=== PATIENT | male | born 1990 | race Caucasian/White ===

== ENCOUNTER 2016-11-28 21:07 | Emergency (ER) | payer MEDICAID ==
[2016-11-29] MEDS ORDERED: HYDROCODONE/ACETAMINOPHEN 5-325 MG TABLET PO ONE (03:28)
[2016-11-29] MEDS ORDERED: HYDROCODONE/ACETAMINOPHEN 5-325 MG 6 TAB/DSPK PO PRN (03:28)
--- NOTE | 2016-11-29 03:34 | ER Document Report ---
ED Hand/Wrist Injury - General Chief Complaint: Finger Injury Stated Complaint: FINGER PAIN Time Seen by Provider: 11/29/16 03:06 TRAVEL OUTSIDE OF THE [place] IN LAST 30 DAYS: No - HPI Injury to: Middle finger Onset: Last week Where: Other - dog bite Quality of pain: Achy Context: Human/animal bite Notes: tetanus UTD, no erythema, edema, drainage - Related Data Allergies/Adverse Reactions: No Known Allergies Allergy (Verified 10/18/15 17:07) Past Medical History - Social History Smoking Status: Current Every Day Smoker Family History: CAD, CVA, DM, Hyperlipidemia, Hypertension, Malignancy. denies : Thyroid Disfunction Patient has suicidal ideation: No Patient has homicidal ideation: No - Past Medical History Cardiac Medical History: Reports: Hx Hypertension Pulmonary Medical History: Reports: Hx Asthma, Hx Pneumonia Neurological Medical History: Reports: Hx Migraine Renal/ Medical History: Denies: Hx Peritoneal Dialysis Musculoskeltal Medical History: Denies Hx Arthritis, Reports Hx Musculoskeletal Deformity, Reports Hx Musculoskeletal Trauma Psychiatric Medical History: Reports: Hx Attention Deficit Hyperactivity Disorder - not taking medication, Hx Bipolar Disorder Traumatic Medical History: Reports: Hx Fractures Past Surgical History: Reports: Hx Orthopedic Surgery - RIGHT HAND, Hx Testicular Surgery - Immunizations Immunizations up to date: Yes Hx Diphtheria, Pertussis, Tetanus Vaccination: Yes Review of Systems - Review of Systems Constitutional: No symptoms reported Musculoskeletal: See HPI Physical Exam - Vital signs Vitals: Temp Pulse Resp BP Pulse Ox 98.6 F 94 18 156/91 H 97 11/28/16 21:24 11/28/16 21:24 11/28/16 21:24 11/28/16 21:24 11/28/16 21:24 - General General appearance: Appears well, Alert In distress: None - Cardiovascular Pulses: Normal: Radial Normal capillary refill: Yes - Extremities Forearm: Normal, Nontender Wrist: Normal, Nontender Hand: Nontender, Swelling - at PIP joint thrid digit right hand. No: Deformity , Dislocation, No evidence of FB, Tendon deficit - Skin Skin Temperature: Warm Skin Moisture: Dry Skin Color: Normal Skin Turgor: Elastic Skin irregularity: negative: Erythema, Tender indurated area Course - Re-evaluation Re-evalutation: 11/29/16 07:35 Patient is a 26-year-old male is hemodynamic stable, no distress afebrile. No evidence of concern for an acute infection of the joint. Evidence of proximal phalanx distal fracture on x-ray. Patient placed in splint and to follow-up with Ortho . - Vital Signs Vital signs: Temp Pulse Resp BP Pulse Ox 97.8 F 74 18 144/93 H 97 11/29/16 03:42 11/29/16 03:42 11/29/16 03:42 11/29/16 03:42 11/29/16 03:42 - Diagnostic Test Radiology reviewed: Image reviewed, Reports reviewed Discharge - Discharge Clinical Impression: Fracture of phalanx of hand Qualifiers: Encounter type: initial encounter Fracture type: closed Qualified Code(s): S62.609A - Fracture of unspecified phalanx of unspecified finger, initial encounter for closed fracture Condition: Good Disposition: HOME, SELF-CARE Instructions: Fractured Finger ([facility]) Additional Instructions: Please follow up with hand surgeon Referrals: EDUIN GONCALVES DO [ACTIVE STAFF] - Follow up in 3-5 days
[2016-11-29 03:43] VITALS: BP 144/93
--- NOTE | 2016-12-02 12:07 | RADIOLOGY REPORT (SQ) ---
EXAM DESCRIPTION: FINGER RIGHT COMPLETED DATE/TIME: 11/29/2016 12:35 am REASON FOR STUDY: right middle finger injury COMPARISON: 10/18/2015. 06/13/2010. NUMBER OF VIEWS: Four views. TECHNIQUE: AP, lateral, and oblique images acquired of the right hand. LIMITATIONS: None. FINDINGS: 4 radiographic views of the right hand show moderate soft tissue swelling at the right 3rd PIP joint. No evidence of radiopaque foreign body. Slight new enthesopathy at the right 3rd proxim al phalangeal head. Screw fixation of the right 4th metacarpal shaft chronic mild deformity of the r ight 5th metacarpus consistent with prior injury per IMPRESSION: Moderate swelling at the right 3rd PIP joint. No significant bone or joint defect. No radiopaque foreign body. TECHNICAL DOCUMENTATION: JOB ID: [id number] [employer]- All Rights Reserved
== END 2016-11-29 03:55 | disposition home or self-care (01) ==
LOC: ER 21:07
DX: S62.602A Fracture of unspecified phalanx of right middle finger, initial encounter for closed fracture (principal); W54.0XXA Bitten by dog, initial encounter; J45.909 Unspecified asthma, uncomplicated; I10 Essential (primary) hypertension; F17.200 Nicotine dependence, unspecified, uncomplicated
CPT/HCPCS: 99283

== ENCOUNTER 2016-12-13 20:12 | Inpatient (IN) | payer MEDICAID ==
--- NOTE | 2016-12-13 20:56 | ER Document Report ---
ED General - General Chief Complaint: Hand Swelling Stated Complaint: RIGHT HAND INJURY Time Seen by Provider: 12/13/16 20:43 TRAVEL OUTSIDE OF THE [place] IN LAST 30 DAYS: No - HPI Notes: Patient is a 26-year-old male who presents the ED per the request of Dr. Salas so that patient can get admitted for osteomyelitis of his right third proximal digit. Patient states that he has had swelling for the last month status post dog bite. Patient was told a week and half ago that he had a fracture and was evaluated by Dr. Salas recently who performed another x-ray and then an outpatient MRI which showed osteomyelitis without tenosynovitis. Patient states that his pain does not radiate. He is still eating and drinking without difficulties. He has been taking Vicodin for his pain. Patient states that he did take 1 dose of Augmentin this evening per orthopedic. Denies any drug allergies or significant past medical history otherwise. Denies any headache, fever, chest pain, palpitations, syncope, cough, shortness of breath, wheeze, dyspnea, abdominal pain, nausea/vomiting/diarrhea, urinary retention, dysuria, hematuria, or rash. - Related Data Allergies/Adverse Reactions: No Known Allergies Allergy (Verified 10/18/15 17:07) Past Medical History - Social History Smoking Status: Unknown if Ever Smoked Family History: CAD, CVA, DM, Hyperlipidemia, Hypertension, Malignancy. denies : Thyroid Disfunction Patient has suicidal ideation: No Patient has homicidal ideation: No - Past Medical History Cardiac Medical History: Reports: Hx Hypertension Pulmonary Medical History: Reports: Hx Asthma, Hx Pneumonia Neurological Medical History: Reports: Hx Migraine Renal/ Medical History: Denies: Hx Peritoneal Dialysis Musculoskeltal Medical History: Denies Hx Arthritis, Reports Hx Musculoskeletal Deformity, Reports Hx Musculoskeletal Trauma Psychiatric Medical History: Reports: Hx Attention Deficit Hyperactivity Disorder - not taking medication, Hx Bipolar Disorder Traumatic Medical History: Reports: Hx Fractures Past Surgical History: Reports: Hx Orthopedic Surgery - RIGHT HAND, Hx Testicular Surgery - Immunizations Immunizations up to date: Yes Hx Diphtheria, Pertussis, Tetanus Vaccination: Yes Review of Systems - Review of Systems Notes: REVIEW OF SYSTEMS: CONSTITUTIONAL : Denies fever, chills, or sweats. Denies recent illness. EENT: Denies eye, ear, throat, or mouth pain or symptoms. Denies nasal or sinus congestion or discharge. Denies throat, tongue, or mouth swelling or difficulty swallowing. CARDIOVASCULAR: Denies chest pain. Denies palpitations or racing or irregular heart beat. Denies ankle edema. RESPIRATORY: Denies cough, cold, or chest congestion. Denies shortness of breath, difficulty breathing, or wheezing. GASTROINTESTINAL: Denies abdominal pain or distention. Denies nausea, vomiting , or diarrhea. Denies blood in vomitus, stools, or per rectum. Denies black, tarry stools. Denies constipation. GENITOURINARY: Denies difficulty urinating, painful urination, burning, frequency, blood in urine, or discharge. MUSCULOSKELETAL: see hpi SKIN: Denies rash, lesions or sores. NEUROLOGICAL: Denies confusion or altered mental status. Denies passing out or loss of consciousness. Denies dizziness or lightheadedness. Denies headache. Denies weakness or paralysis or loss of use of either side. Denies problems with gait or speech. Denies sensory loss, numbness, or tingling. Denies seizures. PSYCHIATRIC: Denies anxiety or stress. Denies depression, suicidal ideation, or homicidal ideation. ALL OTHER SYSTEMS REVIEWED AND NEGATIVE. Dictation was performed using [employer] voice recognition software Physical Exam - Vital signs Vitals: Temp Pulse Resp BP Pulse Ox 98.8 F 83 18 140/91 H 96 12/13/16 20:22 12/13/16 20:22 12/13/16 20:22 12/13/16 20:22 12/13/16 20:22 Notes: PHYSICAL EXAMINATION: GENERAL: Well-appearing, well-nourished and in no acute distress. LUNGS: Breath sounds clear to auscultation bilaterally and equal. No wheezes rales or rhonchi. HEART: Regular rate and rhythm without murmurs, rubs, gallops. Musculoskeletal: Rt 3rd digit: LROM to passive/active. Strength 4+/5 due to pain. + erythema and swelling of the prox phalanx/PIP jt. + tenderness. No obvious prox lymphadenopathy. N/V intact distal. Extremities: No cyanosis, clubbing, or edema b/l. Peripheral pulses 2+. Capillary refill less than 3 seconds. NEUROLOGICAL: Normal speech, normal gait. PSYCH: Normal mood, normal affect. SKIN: see MSk exam. Course - Re-evaluation Re-evalutation: 12/13/16 21:04 Patient is an afebrile, well-hydrated, 26-year-old male who presents the ED with right third digit proximal osteomyelitis that was diagnosed by Dr. Salas. Vitals are stable. Dr. Salas did call prior to patient arrival and would like blood work drawn, n.p.o. after midnight, no antibiotics, and admit to the surgical floor for surgery in the morning. Reviewed with Dr. Salas who stated he will put orders in tonight for the admission and see the patient in the morning. Direction per orthopedics. Reviewed case with patient who is in agreement. - Vital Signs Vital signs: Temp Pulse Resp BP Pulse Ox 98.8 F 83 18 140/91 H 96 12/13/16 20:22 12/13/16 20:22 12/13/16 20:22 12/13/16 20:22 12/13/16 20:22 Discharge - Discharge Clinical Impression: Osteomyelitis Qualifiers: Osteomyelitis type: unspecified type Osteomyelitis location: hand Laterality: right Qualified Code(s): M86.9 - Osteomyelitis, unspecified Condition: Stable Disposition: ADMITTED INPATIENT Admitting Provider: Surgicalist - dr. salas Referrals: FERCHO RAYMUNDO MD [Primary Care Provider] - Follow up as needed
[2016-12-13] MEDS ORDERED: OXYCODONE-ACETAMINOPHEN 5-325 MG TABLET PO PRN (21:23)
[2016-12-13] MEDS ORDERED: ONDANSETRON HCL INJ/PF 4 MG/2 ML SDV IV PRN (21:23)
[2016-12-13 21:39] LABS: ABSOLUTE EOSINOPHILS # (AUTO) 0.1 10^3/uL (0.0-0.6); ABSOLUTE LYMPHOCYTES (AUTO) 2.3 10^3/uL (0.5-4.7); ABSOLUTE MONOCYTES (AUTO) 0.5 10^3/uL (0.1-1.4); ABSOLUTE NEUT (AUTO) 5.4 10^3/uL (1.7-8.2); BASOPHILS % (AUTO) 0.5 % (0-2); EOSINOPHILS % (AUTO) 1.1 % (0-6); HEMATOCRIT 43.1 % (37.9-51.0); HEMOGLOBIN 14.8 g/dL (13.5-17.0); HGB HCT DIFFERENCE 1.3; LYMPHOCYTES % (AUTO) 27.2 % (13-45); MEAN CORPUSCULAR HEMOGLOBIN 30.1 pg (27.0-33.4); MEAN CORPUSCULAR HGB CONC 34.4 g/dL (32.0-36.0); MEAN CORPUSCULAR VOLUME 88 fl (80-97); MONOCYTES % (AUTO) 6.6 % (3-13); RED BLOOD COUNT 4.91 10^6/uL (4.35-5.55); RED CELL DISTRIBUTION WIDTH 12.8 % (11.5-14.0); SEGMENTED NEUTROPHILS % (AUTO) 64.6 % (42-78); WHITE BLOOD COUNT 8.3 10^3/uL (4.0-10.5)
[2016-12-13 21:57] LABS: ALANINE AMINOTRANSFERASE 143 U/L (21-72); ALBUMIN 5.3 g/dL (3.5-5.0); ALKALINE PHOSPHATASE 82 U/L (38-126); ANION GAP 17 (5-19); ASPARTATE AMINO TRANSFERASE 69 U/L (17-59); BILIRUBIN,DIRECT 0.4 mg/dL (0.0-0.4); BILIRUBIN,TOTAL 0.8 mg/dL (0.2-1.3); BLOOD UREA NITROGEN 16 mg/dL (7-20); CALCIUM 10.4 mg/dL (8.4-10.2); CARBON DIOXIDE 26 mmol/L (22-30); CHLORIDE 100 mmol/L (98-107); GLUCOSE 139 mg/dL (75-110); POTASSIUM 3.9 mmol/L (3.6-5.0); SODIUM 142.7 mmol/L (137-145); TOTAL PROTEIN 8.4 g/dL (6.3-8.2)
[2016-12-13 21:58] LABS: C-REACTIVE PROTEIN < 5.0 mg/L (<10.0)
[2016-12-13 22:01] LABS: PROTHROMBIN TIME 12.5 SEC (11.4-15.4)
[2016-12-13 22:02] LABS: PARTIAL THROMBOPLASTIN TIME 26.6 SEC (23.5-35.8)
[2016-12-13] MEDS: RINGERS SOLUTION,LACTATED 1,000 ML IV PRN (22:18)
[2016-12-13 22:23] LABS: ERYTHROCYTE SEDIMENTATION RATE 10 mm/hr (0-15)
[2016-12-13] MEDS: MORPHINE SULFATE 10 MG/ML INJ IV PRN (22:55)
[2016-12-14] MEDS: MORPHINE SULFATE 10 MG/ML INJ IV PRN ×4 (05:35→20:04)
[2016-12-14 06:11] LABS: ABSOLUTE EOSINOPHILS # (AUTO) 0.2 10^3/uL (0.0-0.6); ABSOLUTE LYMPHOCYTES (AUTO) 2.9 10^3/uL (0.5-4.7); ABSOLUTE MONOCYTES (AUTO) 0.8 10^3/uL (0.1-1.4); ABSOLUTE NEUT (AUTO) 5.3 10^3/uL (1.7-8.2); BASOPHILS % (AUTO) 0.4 % (0-2); EOSINOPHILS % (AUTO) 2.2 % (0-6); HEMATOCRIT 39.9 % (37.9-51.0); HEMOGLOBIN 13.7 g/dL (13.5-17.0); HGB HCT DIFFERENCE 1.2; LYMPHOCYTES % (AUTO) 31.7 % (13-45); MEAN CORPUSCULAR HEMOGLOBIN 30.1 pg (27.0-33.4); MEAN CORPUSCULAR HGB CONC 34.2 g/dL (32.0-36.0); MEAN CORPUSCULAR VOLUME 88 fl (80-97); MONOCYTES % (AUTO) 8.7 % (3-13); RED BLOOD COUNT 4.53 10^6/uL (4.35-5.55); RED CELL DISTRIBUTION WIDTH 12.9 % (11.5-14.0); WHITE BLOOD COUNT 9.2 10^3/uL (4.0-10.5)
[2016-12-14] MEDS ORDERED: BACITRACIN INJ 50,000 UNIT VIAL ONE (07:53)
--- NOTE | 2016-12-14 08:07 | PDOC H&P ---
History of Present Illness Admission Date/PCP: 12/13/16 21:20 FERCHO RAYMUNDO MD Patient complains of: Right middle finger swelling History of Present Illness: KRANTHI GUTIERREZ is a 26 year old male who sustained a dog bite to his right middle finger. Patient states the wounds successfully healed but he continued to have swelling of the joint at the middle finger along with pain. He was seen at the emergency room on 11/29/16 where x-rays demonstrated possible fracture and patient was placed in a splint. Since that time was continued to have swelling and pain in the middle finger. He denies fever chills or sweats. Pain 12/22. Denies numbness or tingling. Past Medical History Cardiac Medical History: Reports: Hypertension Pulmonary Medical History: Reports: Asthma, Pneumonia Neurological Medical History: Reports: Migraine Musculoskeltal Medical History: Denies: Arthritis Psychiatric Medical History: Reports: Attention Deficit Hyperactivity Disorder - not taking medication, Bipolar Disorder Hematology: Denies: Anemia Past Surgical History Past Surgical History: Reports: Orthopedic Surgery - RIGHT HAND Social History Smoking Status: Current Some Day Smoker Cigarettes Packs Per Day: 0.5 Frequency of Alcohol Use: Occasional Hx Recreational Drug Use: Yes Drugs: Marijuana - Advance Directive Resuscitation Status: Full Code Family History Family History: CAD, CVA, DM, Hyperlipidemia, Hypertension, Malignancy. denies : Thyroid Disfunction Parental Family History Reviewed: No Children Family History Reviewed: No Sibling(s) Family History Reviewed.: No Medication/Allergy Home Medications: No Home Medications 12/13/16 Allergies/Adverse Reactions: No Known Allergies Allergy (Verified 10/18/15 17:07) Review of Systems All systems: reviewed and no additional remarkable complaints except as stated Constitutional: ABSENT: chills, fever(s), headache(s), weight gain, weight loss Eyes: ABSENT: visual disturbances Ears: ABSENT: hearing changes Cardiovascular: ABSENT: chest pain, dyspnea on exertion, edema, orthropnea, palpitations Respiratory: ABSENT: cough, hemoptysis Gastrointestinal: ABSENT: abdominal pain, constipation, diarrhea, hematemesis, hematochezia, nausea, vomiting Genitourinary: ABSENT: dysuria, hematuria Musculoskeletal: PRESENT: as per HPI Integumentary: ABSENT: rash, wounds Neurological: ABSENT: abnormal gait, abnormal speech, confusion, dizziness, focal weakness, syncope Psychiatric: ABSENT: anxiety, depression, homidical ideation, suicidal ideation Endocrine: ABSENT: cold intolerance, heat intolerance, menstrual abnormalities, polydipsia, polyuria Hematologic/Lymphatic: ABSENT: easy bleeding, easy bruising, lymphadenopathy Physical Exam Vital Signs: Temp Pulse Resp BP Pulse Ox 97.8 F 52 L 17 137/80 H 99 12/14/16 04:48 12/14/16 04:48 12/14/16 04:48 12/14/16 04:48 12/14/16 04:48 Intake & Output 12/13/16 12/14/16 12/15/16 06:59 06:59 06:59 Intake Total 480 Balance 480 Weight 94.1 kg General appearance: PRESENT: no acute distress, well-developed, well-nourished Head exam: PRESENT: atraumatic, normocephalic Eye exam: PRESENT: conjunctiva pink, EOMI, PERRLA. ABSENT: scleral icterus Ear exam: PRESENT: normal external ear exam Mouth exam: PRESENT: moist, tongue midline Neck exam: PRESENT: full ROM. ABSENT: carotid bruit, JVD, lymphadenopathy, thyromegaly Respiratory exam: PRESENT: unlabored Cardiovascular exam: PRESENT: RRR. ABSENT: diastolic murmur, rubs, systolic murmur Pulses: PRESENT: normal dorsalis pedis pul, +2 pedal pulses bilateral Vascular exam: PRESENT: normal capillary refill GI/Abdominal exam: PRESENT: normal bowel sounds, soft. ABSENT: distended, guarding, mass, organolmegaly, rebound, tenderness Rectal exam: PRESENT: deferred Musculoskeletal exam: PRESENT: other - Right middle finger: Significant swelling throughout the PIP joint with painful range of motion. No crepitus with range of motion. Patient has limited active range of motion. Cap refill less than 2 seconds. No sensory deficits. No tracking erythema. 3 dog bite wounds radially, ulnarly and volarly with tenderness to palpation. No active drainage and wounds have healed. No tenderness along the flexor sheath. Neurological exam: PRESENT: alert, awake, oriented to person, oriented to place , oriented to time, oriented to situation, CN II-XII grossly intact. ABSENT: motor sensory deficit Psychiatric exam: PRESENT: appropriate affect, normal mood. ABSENT: homicidal ideation, suicidal ideation Skin exam: PRESENT: dry, intact, warm. ABSENT: cyanosis, rash Results Laboratory Results: 12/14/16 05:12 12/13/16 21:23 12/13/16 12/13/16 12/14/16 21:23 21:23 05:12 WBC 8.3 9.2 RBC 4.91 4.53 Hgb 14.8 13.7 Hct 43.1 39.9 MCV 88 88 MCH 30.1 30.1 MCHC 34.4 34.2 RDW 12.8 12.9 Plt Count 255 234 Seg Neutrophils % 64.6 57.0 Lymphocytes % 27.2 31.7 Monocytes % 6.6 8.7 Eosinophils % 1.1 2.2 Basophils % 0.5 0.4 Absolute Neutrophils 5.4 5.3 Absolute Lymphocytes 2.3 2.9 Absolute Monocytes 0.5 0.8 Absolute Eosinophils 0.1 0.2 Absolute Basophils 0.0 0.0 Sodium 142.7 Potassium 3.9 Chloride 100 Carbon Dioxide 26 Anion Gap 17 BUN 16 Creatinine 0.90 Est GFR ( Amer) > 60 Est GFR (Non-Af Amer) > 60 Glucose 139 H Calcium 10.4 H Total Bilirubin 0.8 AST 69 H ALT 143 H Alkaline Phosphatase 82 C-Reactive Protein < 5.0 Total Protein 8.4 H Albumin 5.3 H Assessment & Plan - Diagnosis (1) Acute osteomyelitis of phalanx of right hand Is this a current diagnosis for this admission?: Yes Plan: Despite patient's normal ESR, CRP and white cell count patient's findings on MRI and physical examination are concerning for possible underlying chronic osteomyelitis I have explained to the patient the severity of this infection including possibility of amputation. Furthermore on the MRI there is evidence of a fluid collection volarly which may indicate hematoma from fracture versus abscess. If the fluid collection deemed to be hematoma intraoperatively patient 's significant swelling may all be secondary to trauma however given his history of a dog bite in this region I feel chronic infection is more likely the culprit as opposed to trauma patient will likely require 4 weeks of IV antibiotics but final decision on definitive treatment will be made after exploration of the middle finger. Risks and benefits have been explained to the patient risks including neurovascular risk, postoperative pain, postoperative stiffness, posttraumatic arthritis and need for possible amputation. Patient verbalized understanding consented for the procedure.
[2016-12-14] MEDS ORDERED: MIDAZOLAM 2 MG/2 ML INJ ONE (08:38)
[2016-12-14] MEDS ORDERED: PROPOFOL INJ 200 MG/20 ML VIAL IV ONE (08:38)
[2016-12-14] MEDS ORDERED: FENTANYL CITRATE INJ/PF 100 MCG/2 ML AMPUL ONE (08:38)
[2016-12-14] MEDS ORDERED: LIDOCAINE 1% INJ-PF (10 MG/ML) 30 ML SDV ONE (09:16)
[2016-12-14] MEDS ORDERED: LIDOCAINE 1% INJ-PF (10 MG/ML) 30 ML SDV INJ ONE (09:27)
[2016-12-14] MEDS ORDERED: BACITRACIN INJ 50,000 UNIT VIAL IR ONE (09:33)
--- NOTE | 2016-12-14 10:10 | Operative Report ---
Operative Report DATE OF SURGERY: 12/14/16 PREOPERATIVE DIAGNOSIS: Osteomyelitis Right Middle Proximal Phalanx POSTOPERATIVE DIAGNOSIS: Same + Abscess Right Middle Finger OPERATION: Excisional Irrigation and Debridement Right Middle Finger Including Deep soft tissue and bone SURGEON: EDUIN GONCALVES ANESTHESIA: GA TISSUE REMOVED OR ALTERED: Aerobic/Anaerobic COMPLICATIONS: None ESTIMATED BLOOD LOSS: Minimal PROCEDURE: Indication for above procedure: 26-year-old male sustained a dog bite to his right middle finger. Patient was seen at the emergency room which later was found to have possible fracture. Patient continued to have redness swelling and pain of his digit he was then seen at my office at which point a stat MRI was ordered demonstrating possible deep fluid collection with osteomyelitis of the proximal phalanx. At that point we discussed treatment options given the risk of osteomyelitis I recommended operative treatment and urgent basis. Risks and benefits were explained to the patient patient verbalized understanding consented for the procedure. Procedure In Detail: Patient was seen and evaluated in the preoperative holding area. The RIGHT upper extremity was initialized and marked. Patient did not receive antibiotics until cultures obtained. Patient was taken back to the operative room where transferred to the operative table and placed under general anesthesia. A surgical team debriefing was performed ensuring all instrumentation was available, the surgical procedure was discussed with possible concerns reviewed. The upper extremity was prepped with Betadine and draped in a sterile fashion. A timeout was done identifying correct patient, procedure and extremity everyone in attendance agree with this and verbalized no concerns. A digital tourniquet was placed. Mid lateral skin incision was made. Blunt dissection was performed down neurovascular bundle was identified and elevated in an volar direction. The transverse retinacular ligament was identified and cut in line with the skin incision elevating it exposing the underlying flexor sheath and the PIP joint. The area of questionable fluid collection was identified there was significant synovium but no active purulence. Cloudy drainage was identified from the PIP joint. The synovium was removed and sent for fungal and AFB culture. Swab aerobic and anaerobic cultures were obtained. There is no significant softening of the bone appreciated. The wound was then copiously irrigated with normal saline. Digital tourniquet was removed. Any peripheral vasculature was coagulated bipolar cautery. Skin was closed with interrupted 4-0 nylon suture. 10 cc of 0.5% Marcaine with epinephrine was injected for postoperative pain control. Wound was dressed with a soft dressing. Patient was awoken from anesthesia transferred from the operating table to the operating room stretcher. There was no intraoperative complications patient taps well with stable to PACU. Postoperative plan: Patient will be continued on IV Unasyn until cultures become final. Patient likely require 4 weeks of IV antibiotics given the findings of osteomyelitis on MRI.
[2016-12-14] MEDS ORDERED: AMPICILLIN SOD/SULBACTAM 1.5 GM VIAL ONE (10:47)
[2016-12-14] MEDS ORDERED: AMPICILLIN SOD/SULBACTAM 3 GM VIAL IV SCH (12:00)
[2016-12-14] MEDS: OXYCODONE-ACETAMINOPHEN 5-325 MG TABLET PO PRN ×2 (12:23→18:15)
[2016-12-14] MEDS: AMPICILLIN SODIUM/SULBACTAM NA 3 GM in NORMAL SALINE 100 ML IV SCH (17:30)
[2016-12-15] MEDS: AMPICILLIN SODIUM/SULBACTAM NA 3 GM in NORMAL SALINE 100 ML IV SCH ×5 (00:53→23:43)
[2016-12-15] MEDS: OXYCODONE-ACETAMINOPHEN 5-325 MG TABLET PO PRN ×4 (00:54→19:57)
[2016-12-15] MEDS: RINGERS SOLUTION,LACTATED 1,000 ML IV PRN (03:42)
[2016-12-15] MEDS: MORPHINE SULFATE 10 MG/ML INJ IV PRN ×4 (03:49→23:43)
[2016-12-15 06:10] LABS: ABSOLUTE EOSINOPHILS # (AUTO) 0.3 10^3/uL (0.0-0.6); ABSOLUTE MONOCYTES (AUTO) 0.7 10^3/uL (0.1-1.4); ABSOLUTE NEUT (AUTO) 3.3 10^3/uL (1.7-8.2); BASOPHILS % (AUTO) 0.6 % (0-2); EOSINOPHILS % (AUTO) 3.6 % (0-6); HEMATOCRIT 36.5 % (37.9-51.0); HEMOGLOBIN 12.8 g/dL (13.5-17.0); HGB HCT DIFFERENCE 1.9; LYMPHOCYTES % (AUTO) 40.9 % (13-45); MEAN CORPUSCULAR HEMOGLOBIN 30.2 pg (27.0-33.4); MEAN CORPUSCULAR HGB CONC 34.9 g/dL (32.0-36.0); MEAN CORPUSCULAR VOLUME 87 fl (80-97); MONOCYTES % (AUTO) 9.4 % (3-13); RED BLOOD COUNT 4.22 10^6/uL (4.35-5.55); RED CELL DISTRIBUTION WIDTH 13.1 % (11.5-14.0); SEGMENTED NEUTROPHILS % (AUTO) 45.5 % (42-78); WHITE BLOOD COUNT 7.3 10^3/uL (4.0-10.5)
[2016-12-16] MEDS: OXYCODONE-ACETAMINOPHEN 5-325 MG TABLET PO PRN ×3 (02:38→15:06)
[2016-12-16] MEDS: AMPICILLIN SODIUM/SULBACTAM NA 3 GM in NORMAL SALINE 100 ML IV SCH ×3 (05:46→17:01)
[2016-12-16] MEDS: MORPHINE SULFATE 10 MG/ML INJ IV PRN ×4 (05:46→22:06)
[2016-12-16 06:01] LABS: ABSOLUTE EOSINOPHILS # (AUTO) 0.3 10^3/uL (0.0-0.6); ABSOLUTE LYMPHOCYTES (AUTO) 2.3 10^3/uL (0.5-4.7); ABSOLUTE MONOCYTES (AUTO) 0.6 10^3/uL (0.1-1.4); ABSOLUTE NEUT (AUTO) 2.9 10^3/uL (1.7-8.2); BASOPHILS % (AUTO) 0.7 % (0-2); EOSINOPHILS % (AUTO) 4.5 % (0-6); HEMATOCRIT 36.6 % (37.9-51.0); HEMOGLOBIN 12.9 g/dL (13.5-17.0); HGB HCT DIFFERENCE 2.1; LYMPHOCYTES % (AUTO) 37.3 % (13-45); MEAN CORPUSCULAR HEMOGLOBIN 30.5 pg (27.0-33.4); MEAN CORPUSCULAR HGB CONC 35.2 g/dL (32.0-36.0); MEAN CORPUSCULAR VOLUME 87 fl (80-97); MONOCYTES % (AUTO) 9.7 % (3-13); RED BLOOD COUNT 4.22 10^6/uL (4.35-5.55); RED CELL DISTRIBUTION WIDTH 12.7 % (11.5-14.0); SEGMENTED NEUTROPHILS % (AUTO) 47.8 % (42-78); WHITE BLOOD COUNT 6.1 10^3/uL (4.0-10.5)
[2016-12-17] MEDS: AMPICILLIN SODIUM/SULBACTAM NA 3 GM in NORMAL SALINE 100 ML IV SCH ×3 (00:48→12:19)
[2016-12-17] MEDS: OXYCODONE-ACETAMINOPHEN 5-325 MG TABLET PO PRN ×3 (00:48→13:40)
[2016-12-17] MEDS: MORPHINE SULFATE 10 MG/ML INJ IV PRN ×3 (02:17→10:05)
[2016-12-17] MEDS ORDERED: ONDANSETRON HCL INJ/PF 4 MG/2 ML SDV IV PRN (11:00)
--- NOTE | 2016-12-17 14:45 | PDOC PROGRESS REPORT ---
Subjective Progress Note for:: 12/17/16 Subjective:: Patient seen on rounds this AM. States his pain is improved but continues to have some swelling. Denies numbness or tingling. Denies fever chills or sweats. Physical Exam Vital Signs: Temp Pulse Resp BP Pulse Ox 98.2 F 60 19 142/88 H 99 12/17/16 11:31 12/17/16 11:31 12/17/16 11:31 12/17/16 11:31 12/17/16 11:31 Intake & Output 12/16/16 12/17/16 12/18/16 06:59 06:59 06:59 Intake Total 3858 3574 1450 Balance 3858 3574 1450 Weight 94.1 kg 96.7 kg Musculoskeletal exam: PRESENT: other - Right middle finger: Surgical incision well approximated no erythema or drainage. Appropriate tenderness to palpation. No tenderness on the flexor sheath. Patient has pain with forced terminal flexion. Intact flexion/extension. No sensory deficits. Results Laboratory Results: 12/16/16 05:21 12/13/16 21:23 12/14/16 09:36 Finger - Right Middle Finger Gram Stain - Final 12/14/16 09:36 Hand - Right Fungal Smear - Final 12/14/16 09:36 Hand - Right Fungal Smear - Final 12/14/16 09:36 Hand - Right AFB Smear Concentration - Final 12/14/16 09:36 Hand - Right Acid Fast Bacilli Smear - Final Assessment & Plan - Diagnosis (1) Acute osteomyelitis of phalanx of right hand Is this a current diagnosis for this admission?: Yes Plan: Despite patient's normal ESR, CRP and white cell count patient's findings on MRI and physical examination are concerning for possible underlying chronic osteomyelitis I have explained to the patient the severity of this infection including possibility of amputation. Despite cultures coming back negative up to this juncture I still feel he requires 6 weeks of IV antibiotics for osteomyelitis. PICC line will be placed today anticipate discharge when home IV antibiotics set up would recommend Unasyn given possibility of Pasteurella.
[2016-12-17] MEDS ORDERED: MIDAZOLAM 2 MG/2 ML INJ ONE (14:47)
[2016-12-17] MEDS ORDERED: FENTANYL CITRATE INJ/PF 100 MCG/2 ML AMPUL ONE (14:48)
--- NOTE | 2016-12-17 15:55 | RADIOLOGY REPORT (SQ) ---
EXAM DESCRIPTION: PICC INSERTION; FLUORO/CV PLACEMENT; U/S GUIDE FOR VASCULAR ACCESS COMPLETED DATE/TIME: 12/17/2016 3:19 pm REASON FOR STUDY: IV Antibiotics; IV ABX for hand infection COMPARISON: AP chest 07/04/2015 FLUOROSCOPY TIME: 42 seconds 1 digital chest spot film and 1 ultrasound images saved to PACS. TECHNIQUE: Fluoroscopic and ultrasound guided PICC placement. LIMITATIONS: None. PROCEDURE: After written consent and assessment were obtained, the patient was brought into the fluo roscopy room and place supine on the table. Ultrasound was used on the patient's left arm for PICC a ccess. The left arm was prepped and draped in a sterile fashion along with the ultrasound probe. The entry site was anesthetized with 1% lidocaine. A 21 gauge 7 cm needle was advanced through the skin a nd into the left basilic vein under live ultrasound guidance. An ultrasound image was saved to PACS confirming access site. A .018 guide wire was then inserted through the needle and into the venous s ystem. The needle was the removed and an 11 blade scalpel was used to make a 1cm skin incision. A 5 fr peel-away sheath was advanced over the wire and into the venous system. A measurement was then mad e using the existing wire and live fluoroscopic guidance. The wire was then removed and the trimmed. The PICC was advanced through the peel-away sheath and into the venous system. The peel-away sheath w as removed and the catheter was adhered to the patients arm with a stat lock. The catheter was then a spirated and flushed and a sterile bandage was placed over the access site. A fluoroscopic spot imag e was saved to PACS confirming the catheter tip within the superior vena cava. Patient received IV conscious sedation for the procedure. 0.5 mg of IV Versed and 25 mcg of IV fent anyl was administered in divided doses by radiology nursing personnel with continuous physiologic mon itoring before, during, and after sedation. No immediate complications. Total sedation time 10 cristina doris, physician [id number] time 8 minutes IMPRESSION: SUCCESSFUL PLACEMENT OF A 5 FR DUAL LUMEN 39 CM PICC IN THE LEFT BASILIC VEIN. IV conscious sedation COMMENT: Patient medication list reviewed: Yes- Quality ID# [id number]:Eligible professional attests to doc umenting in the medical record they obtained, updated, or reviewed the patient's current medications. . Quality ID 145: Final reports for procedures using fluoroscopy that document radiation exposure truman russ, or exposure time and number of fluorographic images (if radiation exposure indices are not avail able) Quality ID #76: The patient was prepped and draped using maximum sterile barrier technique including cap, mask, sterile gown, sterile gloves, a large sterile sheet, hand hygiene, and 2% Chlorhexidine fo r cutaneous antisepsis. When ultrasound is used, sterile ultrasound techniques are followed requiring sterile gel and sterile probes. TECHNICAL DOCUMENTATION: JOB ID: [id number] [employer]- All Rights Reserved
[2016-12-17] MEDS ORDERED: NORMAL SALINE 10 ML SDV (AFTER EACH USE) IV PRN (16:02)
[2016-12-17 16:57] VITALS: BP 136/76
[2016-12-17] MEDS ORDERED: NORMAL SALINE 10 ML SDV (SCHEDULED) IV SCH (22:00)
== END 2016-12-17 17:10 | disposition home health service (06) | DRG 514 ==
LOC: ER 20:12 → UNDOADMIN 21:08 → EH 21:08 → 5 22:34
PROVIDERS: ADMIT Orthopaedic Surgery; ATTEND Orthopaedic Surgery
PROC: 0RBW0ZZ Excision of Right Finger Phalangeal Joint, Open Approach (ICD-10-PCS; principal; 2016-12-14 10:00)
PROC: 02HV33Z Insertion of Infusion Device into Superior Vena Cava, Percutaneous Approach (ICD-10-PCS; 2016-12-17)
PROC: B5181ZA Fluoroscopy of Superior Vena Cava using Low Osmolar Contrast, Guidance (ICD-10-PCS; 2016-12-17)
PROC: B548ZZA Ultrasonography of Superior Vena Cava, Guidance (ICD-10-PCS; 2016-12-17)
DX: M86.141 Other acute osteomyelitis, right hand (principal); W54.0XXA Bitten by dog, initial encounter; Y93.9 Activity, unspecified; Y92.9 Unspecified place or not applicable; Y99.9 Unspecified external cause status; F17.210 Nicotine dependence, cigarettes, uncomplicated
CPT/HCPCS: 36415; 36569; 400; 76937; 77001; 80053; 85025; 85610; 85652; 85730; 86140; 87015; 87040; 87070; 87075; 87101; 87116; 87205; 87206; 88305; 88312; 88341; 88342; 99284; C1769; J0295; J1642; J2250; J2270; J2704; J3010; J3490; J7120

== ENCOUNTER → 2016-12-13 | Outpatient (CLI) | payer MEDICAID ==
--- NOTE | 2016-12-13 17:07 | RADIOLOGY REPORT (SQ) ---
EXAM DESCRIPTION: MRI RT UPPER JOINT COMBO COMPLETED DATE/TIME: 12/13/2016 4:38 pm REASON FOR STUDY: PAIN IN R FINGER(S) M79.644 PAIN IN RIGHT FINGER(S) COMPARISON: 11/29/2016 radiographs. TECHNIQUE: Multiplanar imaging of the right long finger To include T1-weighted, postcontrast T1-weig hted, and T2-weighted images. CONTRAST TYPE AND DOSE: MultiHance, does not indicated. RENAL FUNCTION: None required. The patient is less than 50 years old. LIMITATIONS: None. FINDINGS: BONE MARROW: Mild edema in the distal aspect of the proximal phalanx. Suspect mild perios teal new bone formation. Normal marrow signal in the middle phalanx and distal phalanx. SOFT TISSUES: Focal intermediate T1 signal, hyperintense T2 signal along the volar aspect of the prox imal phalanx distally. This overlies the region of bone edema, is deep to the flexor tendon. Medial and lateral extension as well. Maximal dimension 1.7 cm transverse by 1.1 cm craniocaudal. No abiodun r associated joint effusion. Mild subcutaneous fat stranding and edema generally. Generalized enhan cement through all of these areas. The flexor tendon appears to be intact. OTHER: No other significant finding. IMPRESSION: 1. Suspect osteomyelitis in the distal aspect of the proximal phalanx long finger. Ther e is mild edema here with an overlying collection which likely represents phlegmon or hematoma. Roselyn onal cellulitis. No overt tenosynovitis. TECHNICAL DOCUMENTATION: JOB ID: [id number] [employer]- All Rights Reserved
== END ==
LOC: RAD 15:02
PROVIDERS: ATTEND Orthopaedic Surgery
DX: M79.644 Pain in right finger(s) (principal)
CPT/HCPCS: 73223; A9576

== ENCOUNTER 2017-01-17 17:36 | Emergency (ER) | payer MEDICAID ==
--- NOTE | 2017-01-17 19:51 | ER Document Report ---
ED General - General Chief Complaint: Blood in Catheter Stated Complaint: LEFT ARM PROBLEMS Time Seen by Provider: 01/17/17 19:46 Notes: Patient is a 26-year-old male comes emergency department for chief complaint of accidental movement/displacement of his PICC line from his left basilic vein. He states he was changing the dressing when he accidentally nearly pulled it out , he states he tried to push it back in. PICC line was placed because of osteomyelitis secondary to a dog bite to his right middle finger, he was discharged on 12/31/2016 and the plan was for him to be on IV Unasyn for 4-6 weeks, under the care of Dr. Cook orthopedics who also performed exploration of the finger during his admission here last month. Patient denies fever, he states that since he pushed back and he has radiating pain along his upper arm towards his axilla. TRAVEL OUTSIDE OF THE [place] IN LAST 30 DAYS: No - Related Data Allergies/Adverse Reactions: No Known Allergies Allergy (Verified 01/17/17 17:48) Past Medical History - General Information source: Patient - Social History Smoking Status: Current Every Day Smoker Drug Abuse: None Lives with: Family Family History: CAD, CVA, DM, Hyperlipidemia, Hypertension, Malignancy. denies : Thyroid Disfunction Patient has suicidal ideation: No Patient has homicidal ideation: No - Past Medical History Cardiac Medical History: Reports: Hx Hypertension Pulmonary Medical History: Reports: Hx Asthma, Hx Pneumonia Neurological Medical History: Reports: Hx Migraine Renal/ Medical History: Denies: Hx Peritoneal Dialysis Musculoskeltal Medical History: Denies Hx Arthritis, Reports Hx Musculoskeletal Deformity, Reports Hx Musculoskeletal Trauma Psychiatric Medical History: Reports: Hx Attention Deficit Hyperactivity Disorder - not taking medication, Hx Bipolar Disorder Traumatic Medical History: Reports: Hx Fractures Past Surgical History: Reports: Hx Orthopedic Surgery - RIGHT HAND, Hx Testicular Surgery - Immunizations Immunizations up to date: Yes Hx Diphtheria, Pertussis, Tetanus Vaccination: Yes Review of Systems - Review of Systems Constitutional: No symptoms reported EENT: No symptoms reported Cardiovascular: No symptoms reported Respiratory: No symptoms reported Gastrointestinal: No symptoms reported Genitourinary: No symptoms reported Male Genitourinary: No symptoms reported Musculoskeletal: See HPI Skin: See HPI Hematologic/Lymphatic: No symptoms reported Neurological/Psychological: No symptoms reported Physical Exam - Vital signs Vitals: Temp Pulse Resp BP Pulse Ox 98.7 F 81 14 155/93 H 98 01/17/17 17:48 01/17/17 17:48 01/17/17 17:48 01/17/17 17:48 01/17/17 17:48 Interpretation: Normal - General General appearance: Appears well, Alert In distress: None - HEENT Head: Normocephalic, Atraumatic Eyes: Normal Pupils: PERRL - Respiratory Respiratory status: No respiratory distress Chest status: Nontender Breath sounds: Normal Chest palpation: Normal - Cardiovascular Rhythm: Regular Heart sounds: Normal auscultation Murmur: No - Abdominal Inspection: Normal Distension: No distension Bowel sounds: Normal Tenderness: Nontender Organomegaly: No organomegaly - Back Back: Normal, Nontender - Extremities General upper extremity: Other - PICC line is in place in what appears to be the left basilic vein, no surrounding erythema, no significant tenderness, no swelling, no lymphangitis noted. Normal range of motion of the shoulder, elbow , wrist, normal distal neurovascular exam General lower extremity: Normal inspection, Nontender, Normal color, Normal ROM , Normal temperature, Normal weight bearing. No: Saskia's sign Hand: Other - Right middle finger with slight flexion at the DIP joint, range of motion otherwise unremarkable, there is slight swelling and erythema, no significant tenderness noted, normal capillary refill and sensation, normal hand exam otherwise - Neurological Neuro grossly intact: Yes Cognition: Normal Orientation: AAOx4 Yoseph Coma Scale Eye Opening: Spontaneous Yoseph Coma Scale Verbal: Oriented [place] Coma Scale Motor: Obeys Commands [place] Coma Scale Total: 15 Speech: Normal Motor strength normal: LUE, RUE, LLE, RLE Sensory: Normal - Psychological Associated symptoms: Normal affect, Normal mood - Skin Skin Temperature: Warm Skin Moisture: Dry Skin Color: Normal Course - Re-evaluation Re-evalutation: There is no redness or swelling to the area above the PICC line, patient has some soft tissue swelling and minimal erythema around the right middle finger but there is no spreading erythema, abnormal heat to the area. Patient has some difficulty moving the PIP joint but otherwise moves the finger and full range of motion. No fever. Patient denies fevers at home. Called and spoke to orthopedic surgeon for the patient, Dr. Cook who has been managing the patient, he states that home health and the orthopedic office have not been able to contact patient for the past week and no one was answering , he recommends at this time that patient had the PICC line removed and he be placed on oral antibiotics and follow-up closely in the office. I did discuss this with patient, he is in full agreement with this plan. PICC line was removed by me and the RN, this was done with initial cleaning with alcohol, removed in a smooth motion while nurse was holding pressure above the PICC line , area was cleaned again, Xeroform dressing placed, bulky dressing placed. No significant bleeding or complications. Patient placed on Augmentin after being given a final dose of Unasyn here in the emergency department, discussed follow- up instructions, discussed return precautions, patient states understanding and agreement. - Vital Signs Vital signs: Temp Pulse Resp BP Pulse Ox 98 F 61 18 143/94 H 98 01/17/17 21:25 01/17/17 21:25 01/17/17 21:25 01/17/17 21:25 01/17/17 21:25 Discharge - Discharge Clinical Impression: Bleeding from PICC line Qualifiers: Encounter type: initial encounter Qualified Code(s): T82.838A - Hemorrhage due to vascular prosthetic devices, implants and grafts, initial encounter Osteomyelitis Qualifiers: Osteomyelitis type: subacute Osteomyelitis location: hand Laterality: right Qualified Code(s): M86.241 - Subacute osteomyelitis, right hand Condition: Stable Disposition: HOME, SELF-CARE Additional Instructions: Keep bulky dressing on tonight, tomorrow replace the dressing, clean the area with soap and water gently, you can reapply the yellow Xeroform dressing for another day and then apply topical antibiotic to the area. I spoke with Dr. Joey kirk. Take the Augmentin antibiotic as prescribed, please follow-up with Dr. Cook in the office early next week (call Friday). Return to the ED for any concerning symptoms -developing or spreading redness along the left arm or right hand, fever, or any other concerning symptoms. Prescriptions: Amox Tr/Potassium Clavulanate [Augmentin 875-125 Tablet] 1 tab PO BID 10 Days tablet Forms: Return to Work Referrals: IVAN ANAYA DO [Primary Care Provider] - Follow up as needed
[2017-01-17] MEDS ORDERED: AMPICILLIN SOD/SULBACTAM 3 GM VIAL IV ONE (20:04)
[2017-01-17] MEDS ORDERED: ONDANSETRON 4 MG TAB.RAPDIS PO ONE (20:06)
[2017-01-17] MEDS ORDERED: OXYCODONE-ACETAMINOPHEN 5-325 MG TABLET PO ONE (20:06)
[2017-01-17] MEDS ORDERED: HYDROCODONE/ACETAMINOPHEN 5-325 MG 6 TAB/DSPK PO PRN (21:05)
[2017-01-17 21:26] VITALS: BP 143/94
== END 2017-01-17 21:26 | disposition home or self-care (01) ==
LOC: ER 17:36
DX: M86.241 Subacute osteomyelitis, right hand (principal); T82.838A Hemorrhage due to vascular prosthetic devices, implants and grafts, initial encounter; F17.200 Nicotine dependence, unspecified, uncomplicated; X58.XXXA Exposure to other specified factors, initial encounter
CPT/HCPCS: 99283; 96365; S0119; J0295

== ENCOUNTER 2017-04-08 17:11 | Emergency (ER) | payer MEDICAID ==
[2017-04-08] MEDS ORDERED: PROCHLORPERAZINE EDISYLATE INJ 10 MG/2 ML VIAL IV ONE (18:36)
[2017-04-08] MEDS ORDERED: DIPHENHYDRAMINE HCL 50 MG/ML VIAL IV ONE (18:36)
[2017-04-08] MEDS ORDERED: KETOROLAC TROMETHAMINE INJ/PF 30 MG/1 ML SDV IV ONE (18:36)
--- NOTE | 2017-04-08 18:42 | ER Document Report ---
HPI - HPI Pain Level: 5 Notes: Patient is a 26-year-old male with a history of migraines and osteomyelitis who presents the ED complaining of low back pain and migraine. Patient states the migraine began this afternoon and the back pain has been ongoing for 3 days. Patient states that he does lift heavy objects at work constantly. Patient has not had any injections or procedures to his lower back. The pain radiates up his back and occasionally down his left lower extremity. Patient believes that his back pain has induced his migraine. Patient has light sensitivity associated which is normal for him. Patient has been using several over-the- counter medications with no relief of the migraine. Patient states that this migraine is just like once he has had in the past. He is still eating and drinking without difficulties. He is urinating normally and having normal bowel movements. Patient admits to smoking but denies IV drug use. Denies any fever, head injury, neck pain, changes in vision/speech/mentation/hearing, URI, sore throat, chest pain, palpitations, syncope, cough, shortness of breath, wheeze, dyspnea, abdominal pain, nausea/vomiting/diarrhea, urinary retention, dysuria, hematuria, loss of control of bowel or bladder, numbness/tingling, saddle anesthesia, muscle paralysis/weakness, or rash. - ROS Notes: REVIEW OF SYSTEMS: CONSTITUTIONAL : Denies fever, chills, or sweats. Denies recent illness. EENT: Denies eye, ear, throat, or mouth pain or symptoms. Denies nasal or sinus congestion or discharge. Denies throat, tongue, or mouth swelling or difficulty swallowing. CARDIOVASCULAR: Denies chest pain. Denies palpitations or racing or irregular heart beat. Denies ankle edema. RESPIRATORY: Denies cough, cold, or chest congestion. Denies shortness of breath, difficulty breathing, or wheezing. GASTROINTESTINAL: Denies abdominal pain or distention. Denies nausea, vomiting , or diarrhea. Denies blood in vomitus, stools, or per rectum. Denies black, tarry stools. Denies constipation. GENITOURINARY: Denies difficulty urinating, painful urination, burning, frequency, blood in urine, or discharge. MUSCULOSKELETAL: see hpi SKIN: Denies rash, lesions or sores. NEUROLOGICAL: see hpi. Denies confusion or altered mental status. Denies passing out or loss of consciousness. Denies dizziness or lightheadedness. Denies weakness or paralysis or loss of use of either side. Denies problems with gait or speech. Denies sensory loss, numbness, or tingling. Denies seizures. ALL OTHER SYSTEMS REVIEWED AND NEGATIVE. Dictation was performed using transOMIC recognition software Past Medical History - Social History Smoking Status: Current Every Day Smoker Family History: CAD, CVA, DM, Hyperlipidemia, Hypertension, Malignancy. denies : Thyroid Disfunction - Past Medical History Cardiac Medical History: Reports: Hx Hypertension Pulmonary Medical History: Reports: Hx Asthma, Hx Pneumonia Neurological Medical History: Reports: Hx Migraine Renal/ Medical History: Denies: Hx Peritoneal Dialysis Musculoskeltal Medical History: Denies Hx Arthritis, Reports Hx Musculoskeletal Deformity, Reports Hx Musculoskeletal Trauma Psychiatric Medical History: Reports: Hx Attention Deficit Hyperactivity Disorder - not taking medication, Hx Bipolar Disorder Traumatic Medical History: Reports: Hx Fractures Past Surgical History: Reports: Hx Orthopedic Surgery - RIGHT HAND, Hx Testicular Surgery - Immunizations Immunizations up to date: Yes Hx Diphtheria, Pertussis, Tetanus Vaccination: Yes Vertical Provider Document - CONSTITUTIONAL Agree With Documented VS: Yes Notes: PHYSICAL EXAMINATION: GENERAL: Well-appearing, well-nourished and in no acute distress. A&Ox4 HEAD: Atraumatic, normocephalic. EYES: Pupils equal round and reactive to light, extraocular movements intact, sclera anicteric, conjunctiva are normal. Non-tender. ENT: EAC clear b/l. TM's intact b/l without erythema, fluid, or perforation. Nares patent and without discharge. oropharynx clear without exudates. No tonsilar hypertrophy or erythema. Moist mucous membranes. No sinus tenderness. NECK: Normal range of motion, supple without lymphadenopathy. No rigidity/ meningismus. LUNGS: Breath sounds clear to auscultation bilaterally and equal. No wheezes rales or rhonchi. HEART: Regular rate and rhythm without murmurs, rubs, gallops. ABDOMEN: Soft, nontender, nondistended abdomen. No guarding, no rebound. No masses appreciated. Normal bowel sounds present. No CVA tenderness bilaterally. No pulsatile mass Musculoskeletal: LE's b/l: FROM to passive/active. Strength 5+/5. No deficits noted. No bony tenderness of extremities. Back: FROM to passive/active. Strength 5+/5. No obvious vertebral point tenderness, stepoffs, or deformities. No other bony tenderness, erythema, swelling, or ecchymosis. SLR negative b/l. + tenderness to the L-paraspinal mm as well as the T-paraspinal mm. Extremities: No cyanosis, clubbing, or edema b/l. Peripheral pulses 2+. Capillary refill less than 2 seconds. NEUROLOGICAL: MMSE intact. Cranial nerves grossly intact. Normal speech, normal gait. Normal sensory, motor exams. Reflexes 2+ b/l. KOKI's negative. Pronator drift negative. Heel/lucero, finger/nose wnl. Walking on heels/toes and heel to toe wnl. PSYCH: Normal mood, normal affect. SKIN: Warm, Dry, normal turgor, no rashes or lesions noted. - INFECTION CONTROL TRAVEL OUTSIDE OF THE [place] IN LAST 30 DAYS: No - RESPIRATORY O2 Sat by Pulse Oximetry: 98 Course - Re-evaluation Re-evalutation: 04/08/17 18:42 We will obtain an L-spine XR and treat his CHUNG with compazine, benadryl, fluids, and toradol IV. No focal neurological findings on exam. 04/08/17 19:30 Patient is an afebrile, well-hydrated, 26-year-old male who presents the ED with a headache, suspect migraine, and low back pain, suspect low back strain. Vitals are stable. PE is otherwise unremarkable for any focal neurological deficits. X-ray of the lower back was unremarkable for any acute pathology. No other imaging or lab work warranted at this time based on H&P. The migraine cocktail worked well, and patient's headache has improved/almost resolved. Low suspicion for any acute glaucoma, temporal arteritis, meningitis, intracranial hemorrhage, ischemic stroke, fracture, expanding/ruptured AAA, cauda equina syndrome, epidural mass lesion/abscess, herniated disc causing severe spinal stenosis, or other systemic infection at this time. Patient is aware that his condition can change from initial presentation and that he needs monitor symptoms closely for any acute changes. I will send him home with a prescription for naproxen and baclofen. Conservative measures for symptoms otherwise. Recheck with your PCM in 3-5 days. Return to the ED with any worsening/concerning symptoms otherwise as reviewed in discharge. Patient is in agreement. - Vital Signs Vital signs: Temp Pulse Resp BP Pulse Ox 98.4 F 89 20 138/79 H 98 04/08/17 17:45 04/08/17 17:45 04/08/17 17:45 04/08/17 17:45 04/08/17 17:45 Discharge - Discharge Clinical Impression: Low back strain Qualifiers: Encounter type: initial encounter Qualified Code(s): S39.012A - Strain of muscle, fascia and tendon of lower back, initial encounter Headache Qualifiers: Headache type: unspecified Headache chronicity pattern: acute headache Intractability: not intractable Qualified Code(s): R51 - Headache Condition: Stable Disposition: HOME, SELF-CARE Instructions: Low Back Pain ([facility]), Migraine Headache ([facility]), Muscle Relaxers ( [facility]), Muscle Strain ([facility]), Stretching Exercises for the Back ([facility]) Additional Instructions: Rest, Ice Tylenol/ibuprofen as needed Light stretches daily Strength exercises as able Moist heat and massage may help F/u with your PCP in 3-5 days for a recheck Consider consult(s) with Orthopedics/physical therapy for ongoing/worsening symptoms Return to the ED with any worsening symptoms and/or development of fever, worsening headache, changes in behavior/mentation/vision/speech, chest pain, palpitations, syncope, shortness of breath, trouble breathing, abdominal pain, n /v/d, blood in stool/urine, loss of control of bowel/bladder, urinary retention , muscle weakness/paralysis, saddle anesthesia, numbness/tingling, or other worsening symptoms that are concerning to you. Prescriptions: Baclofen [Baclofen 10 mg Tablet] 5 - 10 mg PO BID PRN #10 tablet PRN Reason: Naproxen 500 mg PO BID PRN #30 tablet PRN Reason: Forms: Elevated Blood Pressure, Smoking Cessation Education Referrals: [facility] [Provider Group] - Follow up as needed [facility] [Provider Group] - Follow up as needed
[2017-04-08] MEDS ORDERED: NORMAL SALINE 1000 ML 1,000 ML IV ONE (18:54)
--- NOTE | 2017-04-08 19:11 | RADIOLOGY REPORT (SQ) ---
EXAM DESCRIPTION: L SPINE WHOLE COMPLETED DATE/TIME: 04/08/2017 7:01 pm REASON FOR STUDY: low back pain COMPARISON: None. NUMBER OF VIEWS: Five views including obliques. TECHNIQUE: AP, lateral, oblique, and sacral radiographic images acquired of the lumbar spine. LIMITATIONS: None. FINDINGS: MINERALIZATION: Normal. SEGMENTATION: Normal. No transitional anatomy. ALIGNMENT: Normal. VERTEBRAE: Maintained height. No fracture or worrisome bone lesion. DISCS: Preserved height. No significant osteophytes or end plate irregularity. POSTERIOR ELEMENTS: Pedicles and facets are intact. No pars defect or posterior arch defects. HARDWARE: None in the spine. PARASPINAL SOFT TISSUES: Normal. PELVIS: Intact as visualized. No fractures or worrisome bone lesions. SI joints intact. OTHER: No other significant finding. IMPRESSION: NORMAL 5 VIEW LUMBAR SPINE. TECHNICAL DOCUMENTATION: JOB ID: [id number] [place]-72 2010 [employer] All Rights Reserved
[2017-04-08 19:38] VITALS: BP 131/66
== END 2017-04-08 19:41 | disposition home or self-care (01) ==
LOC: ER 17:11
DX: S39.012A Strain of muscle, fascia and tendon of lower back, initial encounter (principal); R51 Headache; X50.0XXA Overexertion from strenuous movement or load, initial encounter; F17.200 Nicotine dependence, unspecified, uncomplicated
CPT/HCPCS: 99283; 96361; 96374; 96375; 72110; J1200; J1885; J0780; J7030

== ENCOUNTER 2017-10-10 13:04 | Emergency (ER) | payer MEDICAID, OTHER ==
--- NOTE | 2017-10-10 13:35 | ER Document Report ---
ED Medical Screen (RME) - General Chief Complaint: Head Injury with LOC Stated Complaint: HEAD INJURY Time Seen by Provider: 10/10/17 13:27 Notes: RAPID MEDICAL EVALUATION DISCLOSURE I have seen this patient as part of a Rapid Medical Evaluation and, if applicable, placed any initially appropriate orders. The patient will be seen and fully evaluated, including a full history and physical exam, by a provider ( in Main ED or Fast Track) when a room becomes available. 19-year-old male here with complaints of headache blurry vision difficulty concentrating excessive sleepiness nausea vomiting ongoing for the past 2 days. 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 He passed out and was later found by his coworkers. On his way home, he vomited several times. Since then, his headache has progressively worsened and this is the reason he is here. He is been taking Goody's powder for the symptoms with minimal relief. He does not take any blood thinners. EXAM Alert oriented and conversational There is some mild soft tissue scalp swelling TRAVEL OUTSIDE OF THE [place] IN LAST 30 DAYS: No - Related Data Allergies/Adverse Reactions: No Known Drug Allergies Allergy (Verified 10/10/17 13:06) Past Medical History - Past Medical History Cardiac Medical History: Reports: Hx Hypertension Pulmonary Medical History: Reports: Hx Asthma, Hx Pneumonia Neurological Medical History: Reports: Hx Migraine Renal/ Medical History: Denies: Hx Peritoneal Dialysis Musculoskeltal Medical History: Denies Hx Arthritis, Reports Hx Musculoskeletal Deformity, Reports Hx Musculoskeletal Trauma Psychiatric Medical History: Reports: Hx Attention Deficit Hyperactivity Disorder - not taking medication, Hx Bipolar Disorder Traumatic Medical History: Reports: Hx Fractures Past Surgical History: Reports: Hx Orthopedic Surgery - RIGHT HAND, Hx Testicular Surgery - Immunizations Immunizations up to date: Yes Hx Diphtheria, Pertussis, Tetanus Vaccination: Yes Physical Exam - Vital signs Vitals: Temp Pulse Resp BP Pulse Ox 98.7 F 90 22 H 148/83 H 98 10/10/17 13:17 10/10/17 13:17 10/10/17 13:17 10/10/17 13:17 10/10/17 13:17 Course - Vital Signs Vital signs: Temp Pulse Resp BP Pulse Ox 98.7 F 90 22 H 148/83 H 98 10/10/17 13:17 10/10/17 13:17 10/10/17 13:17 10/10/17 13:17 10/10/17 13:17
--- NOTE | 2017-10-10 14:15 | RADIOLOGY REPORT (SQ) ---
EXAM DESCRIPTION: CT HEAD WITHOUT COMPLETED DATE/TIME: 10/10/2017 1:45 pm REASON FOR STUDY: head injury, n/v blurry vision CHUNG sleepy COMPARISON: None. TECHNIQUE: Axial images acquired through the brain without intravenous contrast. Images reviewed wi th bone, brain and subdural windows. Images stored on PACS. All CT scanners at this facility use dose modulation, iterative reconstruction, and/or weight based d osing when appropriate to reduce radiation dose to as low as reasonably achievable (ALARA). [facility]: Dose Right [facility]: CareDose [facility]: Dose Right [facility]: Teradose 4D [facility]: Smart [email or web address] RADIATION DOSE: CT Rad equipment meets quality standard of care and radiation dose reduction techniq ues were employed. CTDIvol: 53.2 mGy. DLP: 1044 mGy-cm. mGy. LIMITATIONS: None. FINDINGS: VENTRICLES: Normal size and contour. CEREBRUM: No masses. No hemorrhage. No midline shift. No evidence for acute infarction. Normal gra y/white matter differentiation. No areas of low density in the white matter. CEREBELLUM: No masses. No hemorrhage. No alteration of density. No evidence for acute infarction. EXTRAAXIAL SPACES: No fluid collections. No masses. ORBITS AND GLOBE: No intra- or extraconal masses. Normal contour of globe without masses. CALVARIUM: No fracture. PARANASAL SINUSES: No fluid or mucosal thickening. SOFT TISSUES: No mass or hematoma. OTHER: No other significant finding. IMPRESSION: NORMAL BRAIN CT WITHOUT CONTRAST. EVIDENCE OF ACUTE STROKE: NO. COMMENT: Quality ID # [id number]: Final reports with documentation of one or more dose reduction techniques (e.g., Automated exposure control, adjustment of the mA and/or kV according to patient size, use of iterative reconstruction technique) TECHNICAL DOCUMENTATION: JOB ID: [id number] [employer]- All Rights Reserved Reading location - IP/workstation name: [email or web address]
[2017-10-10] MEDS ORDERED: KETOROLAC TROMETHAMINE INJ/PF 30 MG/1 ML SDV IV ONE (14:18)
[2017-10-10] MEDS ORDERED: DIPHENHYDRAMINE HCL 50 MG/ML VIAL IV ONE (14:18)
[2017-10-10] MEDS ORDERED: PROCHLORPERAZINE EDISYLATE INJ 10 MG/2 ML VIAL IV ONE (14:18)
--- NOTE | 2017-10-10 14:18 | ER Document Report ---
ED General - General Chief Complaint: Head Injury with LOC Stated Complaint: HEAD INJURY Time Seen by Provider: 10/10/17 13:27 TRAVEL OUTSIDE OF THE [place] IN LAST 30 DAYS: No - HPI Notes: Patient is a 27-year-old male with a history of migraines who presents to the ED complaining of a continued headache status post head injury 2 days ago. Patient states that he was walking around up with his brush hog when he tripped over grass and hit the top of his head off of a metal piece on the tractor. Patient states that he did lose consciousness for an unknown amount of time. Patient states that he was nauseous and had one episode of vomiting thereafter, but went home and did not get evaluated. Patient states that for the last couple days he has had a headache with light sensitivity and occasional nausea. Patient states that he feels like he has a migraine at this time and is similar to headaches in the past, but has not been aided by home medications including some narcotics. Patient states that he also has some soreness in his neck. Patient is otherwise able to eat and drink, but does have a decreased p.o. intake because of the nausea. He is urinating normally and having normal bowel movements. Patient states that he ambulated here today. Denies any fever , neck pain, changes in vision/speech/mentation/hearing, URI, sore throat, chest pain, palpitations, syncope, cough, shortness of breath, wheeze, dyspnea, abdominal pain, current nausea/vomiting/diarrhea, urinary retention, dysuria, hematuria, back pain, loss of control of bowel or bladder, numbness/tingling, saddle anesthesia, muscle paralysis/weakness, or rash. - Related Data Allergies/Adverse Reactions: No Known Drug Allergies Allergy (Verified 10/10/17 13:06) Past Medical History - Social History Smoking Status: Current Every Day Smoker Chew tobacco use (# tins/day): - 5 Frequency of alcohol use: Social Drug Abuse: None Family History: CAD, CVA, DM, Hyperlipidemia, Hypertension, Malignancy. denies : Thyroid Disfunction Patient has suicidal ideation: No Patient has homicidal ideation: No - Past Medical History Cardiac Medical History: Reports: Hx Hypertension Pulmonary Medical History: Reports: Hx Asthma, Hx Pneumonia Neurological Medical History: Reports: Hx Migraine Renal/ Medical History: Denies: Hx Peritoneal Dialysis Musculoskeltal Medical History: Denies Hx Arthritis, Reports Hx Musculoskeletal Deformity, Reports Hx Musculoskeletal Trauma Psychiatric Medical History: Reports: Hx Attention Deficit Hyperactivity Disorder - not taking medication, Hx Bipolar Disorder Traumatic Medical History: Reports: Hx Fractures Past Surgical History: Reports: Hx Orthopedic Surgery - RIGHT HAND, Hx Testicular Surgery - Immunizations Immunizations up to date: Yes Hx Diphtheria, Pertussis, Tetanus Vaccination: Yes Review of Systems - Review of Systems -: Yes All other systems reviewed and negative Physical Exam - Vital signs Vitals: Temp Pulse Resp BP Pulse Ox 98.7 F 90 22 H 148/83 H 98 10/10/17 13:17 10/10/17 13:17 10/10/17 13:17 10/10/17 13:17 10/10/17 13:17 - Notes Notes: PHYSICAL EXAMINATION: GENERAL: Well-appearing, well-nourished and in no acute distress. A&Ox4. Answers questions appropriately. HEAD: Atraumatic, normocephalic. Non-tender. No torre sign. No bogginess or hematoma. EYES: Pupils equal round and reactive to light, extraocular movements intact, sclera anicteric, conjunctiva are normal. No raccoon eyes/entrapment. No nystagmus. ENT: EAC clear b/l. TM's intact b/l without erythema, fluid, or perforation. Nares patent and without discharge. oropharynx clear without exudates. No tonsilar hypertrophy or erythema. Moist mucous membranes. No sinus tenderness. No hemotympanum/CSF discharge. NECK: Normal range of motion, supple without lymphadenopathy. No rigidity. No midline tenderness. LUNGS: Breath sounds clear to auscultation bilaterally and equal. No wheezes rales or rhonchi. HEART: Regular rate and rhythm without murmurs, rubs, gallops. Musculoskeletal: Ext's b/l: FROM to passive/active. Strength 5+/5. No deficits noted. No bony tenderness of extremities. Back: FROM to passive/active. Strength 5+/5. No vertebral point tenderness, stepoffs, or deformities. No other bony tenderness or ecchymosis. SLR negative b/l. Extremities: No cyanosis, clubbing, or edema b/l. Peripheral pulses 2+. Capillary refill less than 2 seconds. NEUROLOGICAL: NIH 0. GCS 15. Cranial nerves grossly intact. Normal speech, normal gait. Normal sensory, motor exams. Reflexes 2+ b/l. KOKI's negative. Pronator drift negative. Heel/lucero, finger/nose wnl. PSYCH: Normal mood, normal affect. SKIN: Warm, Dry, normal turgor, no rashes or lesions noted. Course - Re-evaluation Re-evalutation: 10/10/17 15:50 Patient is an afebrile, well-hydrated, 27-year-old male who presents to the ED with a headache, suspect migraine, status post head injury. Vitals are acceptable without any significant tachycardia, tachypnea, or hypoxia. PE is otherwise unremarkable for any focal neurological deficits. NIH 0, GCS 15, cranial nerves grossly intact. Patient had CT scans ordered by [facility]. CT of the head and neck were unremarkable for any acute pathology. Patient was given a migraine cocktail which did significantly improve symptoms. No other labs or imaging warranted at this time based on H&P. Patient is tolerating p.o. without difficulties and is nontoxic-appearing. Patient also received 1 L of saline. Low suspicion for any acute glaucoma, temporal arteritis, meningitis, intracranial hemorrhage, ischemic stroke, fracture, expanding/ruptured AAA, cauda equina syndrome, epidural mass lesion/abscess, herniated disc causing severe spinal stenosis, or other systemic infection at this time. Patient is aware that his condition can change from initial presentation and that he needs monitor symptoms closely for any acute changes. Conservative measures for symptoms. Recheck with your PCM in 3-5 days. Consider consult with a neurologist. Return to the ED with any worsening/concerning symptoms otherwise as reviewed in discharge. Patient is in agreement. - Vital Signs Vital signs: Temp Pulse Resp BP Pulse Ox 98.7 F 90 22 H 148/83 H 98 10/10/17 13:17 10/10/17 13:17 10/10/17 13:17 10/10/17 13:17 10/10/17 13:17 Discharge - Discharge Clinical Impression: Head injury Qualifiers: Encounter type: initial encounter Qualified Code(s): S09.90XA - Unspecified injury of head, initial encounter Headache Qualifiers: Headache type: unspecified Headache chronicity pattern: acute headache Intractability: not intractable Qualified Code(s): R51 - Headache Condition: Stable Disposition: HOME, SELF-CARE Instructions: Headache ([facility]), Head Injury Precautions ([facility]) Additional Instructions: Rest, Ice, Compression, Elevation Tylenol/ibuprofen as needed Light stretches daily Strength exercises as able Moist heat and massage may help F/u with your PCP in 3-5 days for a recheck Consider consult(s) with Orthopedics/physical therapy for ongoing/worsening symptoms Return to the ED with any worsening symptoms and/or development of fever, headache, changes in behavior/mentation/vision/speech, chest pain, palpitations , syncope, shortness of breath, trouble breathing, abdominal pain, n/v/d, blood in stool/urine, loss of control of bowel/bladder, urinary retention, muscle weakness/paralysis, saddle anesthesia, numbness/tingling, or other worsening symptoms that are concerning to you. Forms: Elevated Blood Pressure, Smoking Cessation Education Referrals: FABIÁN KHAN MD [EMERITUS] - Follow up as needed
[2017-10-10] MEDS ORDERED: NORMAL SALINE 1000 ML 1,000 ML IV ONE (14:19)
--- NOTE | 2017-10-10 14:20 | RADIOLOGY REPORT (SQ) ---
EXAM DESCRIPTION: CT CERVICAL SPINE WITHOUT COMPLETED DATE/TIME: 10/10/2017 1:45 pm REASON FOR STUDY: s/p fall, midline L cervical pain COMPARISON: None. TECHNIQUE: Axial images acquired through the cervical spine without intravenous contrast. Images re viewed with lung, soft tissue and bone windows. Reconstructed coronal and sagittal MPR images review ed. Images stored on PACS. All CT scanners at this facility use dose modulation, iterative reconstruction, and/or weight based d osing when appropriate to reduce radiation dose to as low as reasonably achievable (ALARA). [facility]: Dose Right [facility]: CareDose [facility]: Dose Right [facility]: Teradose 4D [facility]: Smart [employer] RADIATION DOSE: CT Rad equipment meets quality standard of care and radiation dose reduction techniq ues were employed. CTDIvol: 21.9 mGy. DLP: 587 mGy-cm. mGy. LIMITATIONS: None. FINDINGS: ALIGNMENT: Anatomic. MINERALIZATION: Normal. VERTEBRAL BODIES: No fractures or dislocation. DISCS: No significant disc disease. FACETS, LATERAL MASSES, POSTERIOR ELEMENTS: No fractures. No dislocation. No acute findings. HARDWARE: None in the spine. VISUALIZED RIBS: No fractures. LUNG APICES AND SOFT TISSUES: No significant or acute findings. OTHER: No other significant finding. IMPRESSION: NO ACUTE OR SIGNIFICANT FINDINGS IN THE CERVICAL SPINE. TECHNICAL DOCUMENTATION: JOB ID: [id number] Quality ID # [id number]: Final reports with documentation of one or more dose reduction techniques (e.g., Au tomated exposure control, adjustment of the mA and/or kV according to patient size, use of iterative reconstruction technique) 2010 [employer]- All Rights Reserved Reading location - IP/workstation name: [email or web address]
[2017-10-10] MEDS ORDERED: HYDROMORPHONE HCL INJ/PF 2 MG/ML AMPULE IV ONE (15:27)
[2017-10-10 16:11] VITALS: BP 126/92
== END 2017-10-10 16:10 | disposition home or self-care (01) ==
LOC: ER 13:04
DX: S09.90XA Unspecified injury of head, initial encounter (principal); W01.198A Fall on same level from slipping, tripping and stumbling with subsequent striking against other object, initial encounter; Y93.H1 Activity, digging, shoveling and raking; Y99.0 Civilian activity done for income or pay; F17.220 Nicotine dependence, chewing tobacco, uncomplicated; I10 Essential (primary) hypertension
CPT/HCPCS: 99284; 96361; 96374; 96375; 70450; 72125; J1200; J1885; J1170; J0780; J7030

== ENCOUNTER 2018-04-14 15:21 | Emergency (ER) | payer MEDICAID ==
[2018-04-14] MEDS ORDERED: NORMAL SALINE 1000 ML 1,000 ML IV ONE (16:25)
[2018-04-14] MEDS ORDERED: DIPHENHYDRAMINE HCL 50 MG/ML VIAL IV ONE (16:25)
[2018-04-14] MEDS ORDERED: METOCLOPRAMIDE HCL INJ/PF 10 MG/2 ML SDV IV ONE (16:25)
[2018-04-14] MEDS ORDERED: ONDANSETRON HCL INJ/PF 4 MG/2 ML SDV IV ONE (16:26)
--- NOTE | 2018-04-14 16:27 | ER Document Report ---
ED Medical Screen (RME) - General Chief Complaint: Headache Stated Complaint: HEADACHE Time Seen by Provider: 04/14/18 16:24 Notes: Patient is here complaining of lower back pain for the past couple of days. He says he has a hacking cough for 3 days and sinus congestion. And, he is having a migraine headache for the past day and a half. He is tried Tylenol and ibuprofen without any relief of his symptoms. Has been coughing up some flecks of blood, which she has done previously. He does smoke cigarettes. Has felt chills and sweats but has not noted definite fever. Patient said he has had to come in here to the emergency department for his headaches in the past and was treated with some IV medication cocktail. TRAVEL OUTSIDE OF THE [place] IN LAST 30 DAYS: No - Related Data Allergies/Adverse Reactions: No Known Drug Allergies Allergy (Verified 10/10/17 13:06) Past Medical History - Social History Chew tobacco use (# tins/day): No Frequency of alcohol use: Occasional Drug Abuse: None - Past Medical History Cardiac Medical History: Reports: Hx Hypertension Pulmonary Medical History: Reports: Hx Asthma, Hx Pneumonia Neurological Medical History: Reports: Hx Migraine Renal/ Medical History: Denies: Hx Peritoneal Dialysis Musculoskeltal Medical History: Denies Hx Arthritis, Reports Hx Musculoskeletal Deformity, Reports Hx Musculoskeletal Trauma Psychiatric Medical History: Reports: Hx Attention Deficit Hyperactivity Disorder - not taking medication, Hx Bipolar Disorder Traumatic Medical History: Reports: Hx Fractures Past Surgical History: Reports: Hx Orthopedic Surgery - RIGHT HAND, Hx Testicular Surgery - Immunizations Immunizations up to date: Yes Hx Diphtheria, Pertussis, Tetanus Vaccination: Yes Physical Exam - Vital signs Vitals: Temp Pulse Resp BP Pulse Ox 99.3 F 117 H 21 H 142/73 H 98 04/14/18 15:26 04/14/18 15:26 04/14/18 15:26 04/14/18 15:26 04/14/18 15:26 Course - Vital Signs Vital signs: Temp Pulse Resp BP Pulse Ox 99.3 F 117 H 21 H 142/73 H 98 04/14/18 15:26 04/14/18 15:26 04/14/18 15:26 04/14/18 15:26 04/14/18 15:26
[2018-04-14 17:19] LABS: ABSOLUTE LYMPHOCYTES (AUTO) 0.4 10^3/uL (0.5-4.7); ABSOLUTE MONOCYTES (AUTO) 0.6 10^3/uL (0.1-1.4); ABSOLUTE NEUT (AUTO) 5.3 10^3/uL (1.7-8.2); BASOPHILS % (AUTO) 0.2 % (0-2); HEMATOCRIT 43.8 % (37.9-51.0); HEMOGLOBIN 15.3 g/dL (13.5-17.0); MEAN CORPUSCULAR HEMOGLOBIN 30.7 pg (27.0-33.4); MEAN CORPUSCULAR VOLUME 88 fl (80-97); MONOCYTES % (AUTO) 9.1 % (3-13); PLATELET COUNT 204 10^3/uL (150-450); RED BLOOD COUNT 4.99 10^6/uL (4.35-5.55); RED CELL DISTRIBUTION WIDTH 13.8 % (11.5-14.0); SEGMENTED NEUTROPHILS % (AUTO) 84.7 % (42-78); TOTAL CELLS COUNTED % (AUTO) 100 %; WHITE BLOOD COUNT 6.3 10^3/uL (4.0-10.5)
[2018-04-14 17:45] LABS: ALANINE AMINOTRANSFERASE 56 U/L (21-72); ALBUMIN 4.8 g/dL (3.5-5.0); ALKALINE PHOSPHATASE 70 U/L (38-126); ANION GAP 14 (5-19); ASPARTATE AMINO TRANSFERASE 49 U/L (17-59); BILIRUBIN,DIRECT 0.4 mg/dL (0.0-0.4); BILIRUBIN,TOTAL 0.7 mg/dL (0.2-1.3); BLOOD UREA NITROGEN 17 mg/dL (7-20); CARBON DIOXIDE 26 mmol/L (22-30); CHLORIDE 101 mmol/L (98-107); GLUCOSE 104 mg/dL (75-110); POTASSIUM 3.8 mmol/L (3.6-5.0); TOTAL PROTEIN 7.8 g/dL (6.3-8.2)
[2018-04-14] MEDS ORDERED: IPRATROPIUM/ALBUTEROL 0.5-2.5 MG/3 ML AMPUL NEB ONE ×2 (18:27→22:04)
[2018-04-14] MEDS ORDERED: MORPHINE SULFATE 10 MG/ML INJ IV ONE ×2 (18:28→22:04)
[2018-04-14] MEDS ORDERED: PREDNISONE 20 MG TABLET PO ONE (18:28)
[2018-04-14] MEDS ORDERED: NORMAL SALINE 1000 ML 1,000 ML IV PRN (18:29)
--- NOTE | 2018-04-14 18:32 | ER Document Report ---
ED General - General Chief Complaint: Headache Stated Complaint: HEADACHE Time Seen by Provider: 04/14/18 16:24 Mode of Arrival: Ambulatory Information source: Patient Notes: Patient presents complaining of cough for the past 3 days. Patient has been coughing very hard so that it causes his low back and had to hurt. Patient states he has had back and headache pain for the past 2 days. Patient reports chills but has not measured a temperature. Patient denies any nausea or vomiting. Patient denies any relief of his symptoms with [id number] medications. TRAVEL OUTSIDE OF THE [place] IN LAST 30 DAYS: No - HPI Onset: Other - 3 days Onset/Duration: Persistent Quality of pain: Achy Pain Level: 4 Associated symptoms: Nonproductive cough, Headache. denies: Chest pain, Productive cough, Fever, Nausea, Vomiting, Shortness of breath Exacerbated by: Coughing Relieved by: Denies Similar symptoms previously: No Recently seen / treated by doctor: No - Related Data Allergies/Adverse Reactions: No Known Drug Allergies Allergy (Verified 10/10/17 13:06) Past Medical History - General Information source: Patient - Social History Smoking Status: Current Every Day Smoker Chew tobacco use (# tins/day): No Smoking Education Provided: Yes Frequency of alcohol use: Occasional Drug Abuse: None Family History: CAD, CVA, DM, Hyperlipidemia, Hypertension, Malignancy. denies: Thyroid Disfunction Patient has suicidal ideation: No Patient has homicidal ideation: No - Past Medical History Cardiac Medical History: Reports: Hx Hypertension Pulmonary Medical History: Reports: Hx Asthma, Hx Pneumonia Neurological Medical History: Reports: Hx Migraine Renal/ Medical History: Denies: Hx Peritoneal Dialysis Musculoskeletal Medical History: Denies Hx Arthritis, Reports Hx Musculoskeletal Deformity, Reports Hx Musculoskeletal Trauma Psychiatric Medical History: Reports: Hx Attention Deficit Hyperactivity Disorder - not taking medication, Hx Bipolar Disorder Traumatic Medical History: Reports: Hx Fractures Past Surgical History: Reports: Hx Orthopedic Surgery - RIGHT HAND, Hx Testicula r Surgery - Immunizations Immunizations up to date: Yes Hx Diphtheria, Pertussis, Tetanus Vaccination: Yes Review of Systems - Review of Systems Constitutional: Chills. denies: Fever EENT: Nose congestion Cardiovascular: No symptoms reported. denies: Chest pain, Syncope, Dizziness Respiratory: Cough, Wheezing. denies: Short of breath Gastrointestinal: No symptoms reported. denies: Abdominal pain, Nausea, Vomiting Genitourinary: No symptoms reported. denies: Dysuria Male Genitourinary: No symptoms reported Musculoskeletal: Back pain Skin: No symptoms reported Hematologic/Lymphatic: No symptoms reported Neurological/Psychological: Headaches Physical Exam - Vital signs Vitals: Temp Pulse Resp BP Pulse Ox 99.3 F 117 H 21 H 142/73 H 98 04/14/18 15:26 04/14/18 15:26 04/14/18 15:26 04/14/18 15:26 04/14/18 15:26 - General General appearance: Appears well, Alert In distress: None - HEENT Head: Normocephalic Eyes: Normal Conjunctiva: Normal Extraocular movements intact: Yes Pupils: PERRL Ears: Normal External canal: Normal Tympanic membrane: Normal Nasal: Normal Mouth/Lips: Normal Pharynx: Erythema. No: Retropharyngeal abscess, Tonsillar hypertrophy, Potential airway comprom. Neck: Normal, Supple. No: Brudzinski, Lymphadenopathy, Meningismus - Respiratory Respiratory status: No respiratory distress Chest status: Nontender Breath sounds: Nonproductive cough, Rhonchi, Wheezing Chest palpation: Normal - Cardiovascular Rhythm: Regular Heart sounds: S1 appreciated, S2 appreciated Murmur: No - Abdominal Inspection: Normal Distension: No distension Bowel sounds: Normal Tenderness: Nontender - Back Back: Tender - Lower lumbar paraspinal tenderness. No: CVA tenderness - Extremities General upper extremity: Normal inspection, Nontender, Normal strength General lower extremity: Normal inspection, Nontender, Normal strength - Neurological Neuro grossly intact: Yes Cognition: Normal [place] Coma Scale Eye Opening: Spontaneous [place] Coma Scale Verbal: Oriented [place] Coma Scale Motor: Obeys Commands [place] Coma Scale Total: 15 - Psychological Associated symptoms: Normal affect, Normal mood - Skin Skin Temperature: Warm Skin Moisture: Dry Skin Color: Normal Course - Re-evaluation Re-evalutation: 04/14/18 20:11 Patient sleeping, arouses easily to voice. Upon waking patient again complains of headache and back pain. Feel that patient's headache and back pain are posttussive. Patient is nontoxic in appearance, no meningeal irritation sympto ms. Patient does continue to smoke and does report that he uses an Advair discus at home for wheezing. Patient is requesting pain medication as well as inhaler to go home to help manage his symptoms. 04/14/18 20:12 The patient presents with headache without signs of UPHOLSTERY MECHANIC bleed, stroke, infection, or other serious etiology. The patient is neurologically intact. Given the extremely low risk of these diagnoses further testing and evaluation for these possibilities does not appear to be indicated at this time. The patient has been instructed to return if the symptoms worsen or change in any wa y. The patient presents with low back pain without signs of spinal cord compression, cauda equina syndrome, infection, aneurysm, or other serious etiology. The patient is neurologically intact. Given the extremely risk of these diagnoses further testing and evaluation for these possibilities does not appear to be indicated at this time. Patient has been instructed to return if the symptoms worsen or change in any way. 04/14/18 20:38 Patient had not received his maintenance IV fluids, patient continues tachycardic, additional fluid bolus ordered. 04/14/18 22:08 Patient continues tachycardic complaining of dyspnea. We will add on additional tests at this time. 04/14/18 23:23 Radiology report reviewed, no concern for PE. Patient does have findings worrisome for likely right middle lobe pneumonia. Will treat with Rocephin and doxycycline. Good return precautions given. - Vital Signs Vital signs: Temp Pulse Resp BP Pulse Ox 99.7 F 109 H 19 127/67 H 100 04/14/18 20:36 04/14/18 20:36 04/14/18 20:36 04/14/18 20:36 04/14/18 20:36 - Laboratory Result Diagrams: 04/14/18 17:09 04/14/18 17:09 Laboratory results interpreted by me: 04/14/18 17:09 Seg Neutrophils % 84.7 H Lymphocytes % 6.0 L Absolute Lymphocytes 0.4 L 04/14/18 20:12 Labs- Entire Visit 04/14/18 04/14/18 17:09 17:09 WBC 6.3 RBC 4.99 Hgb 15.3 Hct 43.8 MCV 88 MCH 30.7 MCHC 35.0 RDW 13.8 Plt Count 204 Seg Neutrophils % 84.7 H Lymphocytes % 6.0 L Monocytes % 9.1 Eosinophils % 0.0 Basophils % 0.2 Absolute Neutrophils 5.3 Absolute Lymphocytes 0.4 L Absolute Monocytes 0.6 Absolute Eosinophils 0.0 Absolute Basophils 0.0 Sodium 141.0 Potassium 3.8 Chloride 101 Carbon Dioxide 26 Anion Gap 14 BUN 17 Creatinine 1.18 Est GFR ( Amer) > 60 Est GFR (Non-Af Amer) > 60 Glucose 104 Calcium 10.0 Total Bilirubin 0.7 Direct Bilirubin 0.4 Neonat Total Bilirubin Not Reportable Neonat Direct Bilirubin Not Reportable Neonat Indirect Bili Not Reportable AST 49 ALT 56 Alkaline Phosphatase 70 Total Protein 7.8 Albumin 4.8 - Diagnostic Test Radiology reviewed: Reports reviewed Discharge - Discharge Clinical Impression: Wheezing Low back pain Qualifiers: Chronicity: acute Back pain laterality: unspecified Sciatica presence: without sciatica Qualified Code(s): M54.5 - Low back pain Headache Qualifiers: Headache type: unspecified Headache chronicity pattern: unspecified pattern Intractability: not intractable Qualified Code(s): R51 - Headache Pneumonia Qualifiers: Pneumonia type: due to unspecified organism Laterality: right Lung location: middle lobe of lung Qualified Code(s): J18.1 - Lobar pneumonia, unspecified organism Condition: Stable Disposition: HOME, SELF-CARE Instructions: Bronchitis With Bronchospasm (Wheezing) ([facility]), Doxycycline ([facility]), Headache ([facility]), Inhaled Bronchodilators ([facility]), Low Back Pain ([facility]), Pneumonia ([facility]), Rocephin ([facility]) Additional Instructions: Return immediately for any new or worsening symptoms Followup with your primary care provider, call tomorrow to make a followup appointment Prescriptions: Cyclobenzaprine HCl [Flexeril 10 Mg Tablet] 10 mg PO TID #15 tablet Dextromethorphan HBr [Delsym] 10 ml PO Q12 PRN #100 ml PRN Reason: Doxycycline Hyclate 100 mg PO BID #20 capsule Prednisone [Deltasone 20 mg Tablet] 3 tab PO DAILY 4 Days tablet Forms: Smoking Cessation Education, Return to Work [facility] [[facility]] - Follow up tomorrow
--- NOTE | 2018-04-14 19:10 | RADIOLOGY REPORT (SQ) ---
EXAM DESCRIPTION: CHEST 2 VIEWS COMPLETED DATE/TIME: 04/14/2018 6:47 pm REASON FOR STUDY: cough COMPARISON: 07/04/2015. EXAM PARAMETERS: NUMBER OF VIEWS: two views TECHNIQUE: Digital Frontal and Lateral radiographic views of the chest acquired. RADIATION DOSE: NA LIMITATIONS: none FINDINGS: LUNGS AND PLEURA: No opacities, masses or pneumothorax. No pleural effusion. MEDIASTINUM AND HILAR STRUCTURES: No masses or contour abnormalities. HEART AND VASCULAR STRUCTURES: Heart normal size. No evidence for failure. BONES: No acute findings. HARDWARE: None in the chest. OTHER: No other significant finding. IMPRESSION: NO ACUTE RADIOGRAPHIC FINDING IN THE CHEST. TECHNICAL DOCUMENTATION: JOB ID: [id number] [employer]- All Rights Reserved Reading location - IP/workstation name: [email or web address]
[2018-04-14] MEDS ORDERED: HYDROCODONE/ACETAMINOPHEN 5-325 MG (6 TAB/ER DISP) PO PRN (20:12)
[2018-04-14] MEDS ORDERED: ALBUTEROL SULFATE HFA (90 MCG/PUFF) 8 GM MDI (1 MDI/ER DISP) IH ONE (20:12)
--- NOTE | 2018-04-14 23:16 | RADIOLOGY REPORT (SQ) ---
CT CHEST ANGIOGRAPHY WITHOUT THEN WITH IV CONTRAST HISTORY: Shortness of breath. Evaluate for pulmonary embolism. COMPARISON: None. TECHNIQUE: CT angiogram of the chest with IV contrast. 3-D MIP images were obtained in coronal and sagittal reconstructions. This exam was performed according to our departmental dose-optimization program, which includes automated exposure control, adjustment of the mA and/or kV according to patient size and/or use of iterative reconstruction technique. FINDINGS: No mediastinal, hilar, or axillary adenopathy is seen. The heart size is normal. No pericardial effusion is seen. No acute pulmonary embolism is seen in the main or segmental branches. No consolidation, pleural effusion, or pneumothorax is identified. There is a small area of groundglass opacity in the right middle lobe. Limited views of the upper abdomen demonstrate no acute findings. The osseous structures are intact. IMPRESSION: 1. No acute pulmonary embolism. 2. Small area of the right middle lobe which may represent infection in the correct clinical setting.
[2018-04-14] MEDS ORDERED: CEFTRIAXONE INJ 1000 MG VIAL IV ONE (23:18)
[2018-04-14] MEDS ORDERED: DOXYCYCLINE HYCLATE 100 MG TABLET PO ONE (23:18)
[2018-04-15 00:38] VITALS: BP 131/64
== END 2018-04-15 00:15 | disposition home or self-care (01) ==
LOC: ER 15:21
DX: J18.1 Lobar pneumonia, unspecified organism (principal); J45.909 Unspecified asthma, uncomplicated; Z79.51 Long term (current) use of inhaled steroids; M54.5 Low back pain; R51 Headache; R68.83 Chills (without fever); R09.81 Nasal congestion; R05 Cough; R00.0 Tachycardia, unspecified; F17.200 Nicotine dependence, unspecified, uncomplicated; I10 Essential (primary) hypertension
CPT/HCPCS: 96376; 94640 ×2; 99284; 96361; 96375; 96365; 36415; 85025; 80053; 71046; 71275; J1200; J3490 ×2; J2765; J2270; J7512; J0696; J2405; J7030; J7620

== ENCOUNTER 2018-09-05 08:44 | Emergency (ER) | payer SELFPAY ==
[2018-09-05 08:54] VITALS: BP 130/85
--- NOTE | 2018-09-05 09:25 | ER Document Report ---
HPI - HPI Time Seen by Provider: 09/05/18 09:15 Pain Level: 2 Notes: Patient is a 27-year-old male with no significant past medical history aside from chronic migraines who presents complaining of continued right anterior tibial pain status post injury 2 weeks ago. Patient states that a wheel rim fell on top of his leg. Patient states that the pain is to the front side of his leg only and primarily to the bone itself. Patient states that there was an abrasion and bruising in that area. Patient states that he still continues to have pain in that area and wanted it evaluated. Denies drug allergies. He still able to ambulate without difficulty. No other concerns or complaints. Pain does not radiate. Denies any headache, fever, URI, sore throat, chest pain, palpitations, syncope, cough, shortness of breath, wheeze, dyspnea, abdominal pain, nausea/vomiting/diarrhea, urinary retention, dysuria, hematuria, loss of control of bowel or bladder, numbness/tingling, saddle anesthesia, muscle paralysis/weakness, or rash. Tetanus <5yrs ago per pt. - ROS Systems Reviewed and Negative: Yes All other systems reviewed and negative - MUSCULOSKELETAL Musculoskeletal: REPORTS: Extremity pain - right lower leg Past Medical History - Social History Smoking Status: Current Every Day Smoker Frequency of alcohol use: Heavy Drug Abuse: None Family History: CAD, CVA, DM, Hyperlipidemia, Hypertension, Malignancy. denies: Thyroid Disfunction Patient has suicidal ideation: No Patient has homicidal ideation: No - Past Medical History Cardiac Medical History: Reports: Hx Hypertension Pulmonary Medical History: Reports: Hx Asthma, Hx Pneumonia Neurological Medical History: Reports: Hx Migraine Renal/ Medical History: Denies: Hx Peritoneal Dialysis Musculoskeletal Medical History: Denies Hx Arthritis, Reports Hx Musculoskeletal Deformity, Reports Hx Musculoskeletal Trauma Psychiatric Medical History: Reports: Hx Attention Deficit Hyperactivity Disorder - not taking medication, Hx Bipolar Disorder Traumatic Medical History: Reports: Hx Fractures Past Surgical History: Reports: Hx Orthopedic Surgery - RIGHT HAND, Hx Testicular Surgery - Immunizations Immunizations up to date: Yes Hx Diphtheria, Pertussis, Tetanus Vaccination: Yes Vertical Provider Document - CONSTITUTIONAL Agree With Documented VS: No - HR 88 during exam Notes: PHYSICAL EXAMINATION: GENERAL: Well-appearing, well-nourished and in no acute distress. LUNGS: Breath sounds clear to auscultation bilaterally and equal. No wheezes rales or rhonchi. HEART: Regular rate and rhythm without murmurs, rubs, gallops. Musculoskeletal: Rt lower leg: + old appearing abrasion to the mid shaft anterior tibia with mild ecchymosis noted. No erythema, fluctuance, streaks, purulence, or warmth noted. + tenderness associated directly to the anterior mid shaft tibia that correlates with pain described. No lower ankle tenderness. Compartments are soft w/o foot drop. N/V intact with 2+ pulses. No fibular head or knee tenderness. FROM at his joints to the LE. Strength 5+/5. No LE asymmetry and no calf tenderness. Extremities: No cyanosis, clubbing, or edema b/l. Peripheral pulses 2+ b/l. Capillary refill less than 3 seconds. Asskia neg b/l. NEUROLOGICAL: Normal speech, normal gait. Normal sensory, motor exams PSYCH: Normal mood, normal affect. SKIN: see above. - INFECTION CONTROL TRAVEL OUTSIDE OF THE [place] IN LAST 30 DAYS: No Course - Re-evaluation Re-evalutation: 09/05/18 10:25 Patient is an afebrile, well-hydrated, 27-year-old male who presents with a contusion to his right anterior tibia. Vitals are acceptable without significant tachycardia, tachypnea, or hypoxia. PE is otherwise unremarkable for any neurovascular compromise, obvious tendon/leg rupture, obvious fracture/dislocation, septic joint, DVT. X-ray was unremarkable for any acute pathology. Patient has a small abrasion noted without any surrounding erythema, induration, warmth, purulence, fluctuance. No incision and drainage is warranted at this time based on his exam and current vitals. He is not tachycardic with a heart rate at 88-90 currently. Pt was asking for narcotics, but advised that it is not warranted for his current condition. Offered toradol which he declined. Rx for naproxen will be sent. He is able to ambulate withou t difficulty. No further labs or imaging warranted. Recheck with your PCM in 3 to 5 days. Consider consult with orthopedics. Return to the ED with any other worsening/concerning symptoms. Patient is in agreement. - Vital Signs Vital signs: Temp Pulse Resp BP Pulse Ox 98.7 F 107 H 16 130/85 H 95 09/05/18 08:53 09/05/18 08:53 09/05/18 08:53 09/05/18 08:53 09/05/18 08:53 Discharge - Discharge Clinical Impression: Right leg pain Contusion of leg, right Qualifiers: Encounter type: initial encounter Qualified Code(s): S80.11XA - Contusion of right lower leg, initial encounter Condition: Stable Disposition: HOME, SELF-CARE Additional Instructions: Rest, Ice, Compression, Elevation Tylenol/ibuprofen as needed Light stretches daily Strength exercises as able Moist heat and massage may help F/u with your PCP in 3-5 days for a recheck Consider consult(s) with Orthopedics/physical therapy for ongoing/worsening symptoms Return to the ED with any worsening symptoms and/or development of fever, headache, chest pain, palpitations, syncope, shortness of breath, trouble breathing, abdominal pain, n/v/d, muscle weakness/paralysis, numbness/tingling, swelling, redness, or other worsening symptoms that are concerning to you. Prescriptions: Naproxen 500 mg PO BID #10 tablet Forms: Smoking Cessation Education, Elevated Blood Pressure, Return to Work Referrals: [facility] [Provider Group] - Follow up as needed
--- NOTE | 2018-09-05 10:05 | RADIOLOGY REPORT (SQ) ---
EXAM DESCRIPTION: TIBIA FIBULA RIGHT COMPLETED DATE/TIME: 09/05/2018 9:52 am REASON FOR STUDY: anterior mid shaft pain s/p crush injury 2 wks ago COMPARISON: None. NUMBER OF VIEWS: Two views. TECHNIQUE: Two radiographic images acquired of the right tibia and fibula to include the knee and an kle in at least one projection. LIMITATIONS: None. FINDINGS: MINERALIZATION: Normal. BONES: No acute fracture or dislocation. No worrisome bone lesions. SOFT TISSUES: No obvious swelling or foreign body. OTHER: No other significant finding. IMPRESSION: NEGATIVE STUDY OF THE RIGHT TIBIA AND FIBULA. NO RADIOGRAPHIC EVIDENCE OF ACUTE INJURY. TECHNICAL DOCUMENTATION: JOB ID: [id number] [employer]- All Rights Reserved Reading location - IP/workstation name: [email or web address]
== END 2018-09-05 10:35 | disposition home or self-care (01) ==
LOC: ER 08:44
DX: S80.11XA Contusion of right lower leg, initial encounter (principal); M79.604 Pain in right leg; W22.8XXA Striking against or struck by other objects, initial encounter; F17.200 Nicotine dependence, unspecified, uncomplicated; I10 Essential (primary) hypertension; J45.909 Unspecified asthma, uncomplicated
CPT/HCPCS: 99284